=== PATIENT | female | born 1990 | race African-American/Black ===

== ENCOUNTER → 2017-09-12 | Outpatient (CLI) | payer OTHER | END | disposition home or self-care (01) | LOC: US 11:16 | DX: N93.9 Abnormal uterine and vaginal bleeding, unspecified (principal); N83.02 Follicular cyst of left ovary; N83.01 Follicular cyst of right ovary | CPT/HCPCS: 76830; 76856 ==

== ENCOUNTER 2017-11-06 20:46 | Emergency (ER) | payer OTHER | END 2017-11-06 21:22 | disposition home or self-care (01) | LOC: ER 20:46 | DX: R21 Rash and other nonspecific skin eruption (principal); Z98.890 Other specified postprocedural states | CPT/HCPCS: 99283 ==

== ENCOUNTER 2019-03-30 15:07 | Emergency (ER) | payer OTHER ==
[~2019-03-30] VITALS: Ht 167.6 cm; Wt 97.5 kg
[~2019-03-30 15:07] MED LIST: AMOX1TAB61 PO; CLOT15CR5 TP; LEXAPRO20 MG PO; METF500T16 PO; PSEU120T58 PO; [UNRECOGNIZED DRUG - CODE] MC
[2019-03-30 17:14] VITALS: BP 119/86
--- NOTE | 2019-03-30 17:38 | PHYS DOC ---
Past Medical History Past Medical History: No Pertinent History (MURTAZA WOOTEN APRN) Past Surgical History: No Surgical History (MURTAZA WOOTEN APRN) Alcohol Use: None Drug Use: None (MURTAZA WOOTEN APRN) Attending Signature I have participated in the care of this patient and I have reviewed and agree with all pertinent clinical information above including history, exam, and recommendations. (SULY OLIVEIRA MD) Adult General Chief Complaint Chief Complaint: VAGINAL BLEEDING HPI HPI Patient is a 28 year old female who presents with last menstrual period is January 15, 2019. Patient states on Saturday and having vaginal bleeding and to change her pad every hour. Patient states she has low mid abdominal pain is cramping and low back is aching she rates a 7 out of 10. Patient states she does have slight burning with urination. Patient has not established OB care. (MURTAZA WOOTEN APRN) Review of Systems Review of Systems GI: abdominal pain, denies nausea, vomiting, bloody stools or diarrhea [] : Vaginal bleeding. Denies dysuria or hematuria [] All other systems were reviewed and found to be within normal limits, except as documented in this note. (MURTAZA WOOTEN APRN) Current Medications Current Medications Current Medications Medications (Trade) Dose Ordered Sig/Gwen Start Time Stop Time Status Last Admin Dose Admin Azithromycin (Zithromax) 1,000 mg 1X ONCE 03/30/19 17:45 03/30/19 17:46 DC 03/30/19 19:00 1,000 MG Ceftriaxone Sodium (Rocephin Im) 250 mg 1X ONCE 03/30/19 17:45 03/30/19 17:46 DC 03/30/19 18:58 250 MG Ondansetron HCl (Zofran Odt) 4 mg 1X ONCE 03/30/19 17:45 03/30/19 17:46 DC 03/30/19 19:01 4 MG (SULY OLIVEIRA MD) Allergies Allergies Allergies Coded Allergies Type Severity Reaction Last Updated Verified codeine Allergy Intermediate itching 09/27/14 Yes (SULY OLIVEIRA MD) Physical Exam Physical Exam Constitutional: Well developed, well nourished, no acute distress, non-toxic appearance. [] Abdomen: Bowel sounds normal, soft, no tenderness, no masses, no pulsatile masses. [] Skin: Warm, dry, no erythema, no rash. [] Back: No tenderness, no CVA tenderness. [] Neurologic: Alert and oriented X 3, normal motor function, normal sensory function, no focal deficits noted. [] Psychologic: Affect normal, judgement normal, mood normal. [] (MURTAZA WOOTEN APRN) Current Patient Data Vital Signs Vital Signs Date Time Temp Pulse Resp B/P (MAP) Pulse Ox O2 Delivery O2 Flow Rate FiO2 03/30/19 17:14 74 119/86 (97) 99 Room Air 03/30/19 16:46 98.3 16 98.3 (SULY OLIVEIRA MD) Lab Values Laboratory Tests Test 03/30/19 17:28 03/30/19 17:33 03/30/19 18:50 03/30/19 18:56 White Blood Count 9.9 x10^3/uL (4.0-11.0) Red Blood Count 4.72 x10^6/uL (3.50-5.40) Hemoglobin 12.3 g/dL (12.0-15.5) Hematocrit 38.0 % (36.0-47.0) Mean Corpuscular Volume 81 fL (79-100) Mean Corpuscular Hemoglobin 26 pg (25-35) Mean Corpuscular Hemoglobin Concent 33 g/dL (31-37) Red Cell Distribution Width 16.1 % (11.5-14.5) H Platelet Count 316 x10^3/uL (140-400) Neutrophils (%) (Auto) 72 % (31-73) Lymphocytes (%) (Auto) 21 % (24-48) L Monocytes (%) (Auto) 6 % (0-9) Eosinophils (%) (Auto) 2 % (0-3) Basophils (%) (Auto) 1 % (0-3) Neutrophils # (Auto) 7.1 x10^3/uL (1.8-7.7) Lymphocytes # (Auto) 2.0 x10^3/uL (1.0-4.8) Monocytes # (Auto) 0.6 x10^3/uL (0.0-1.1) Eosinophils # (Auto) 0.1 x10^3/uL (0.0-0.7) Basophils # (Auto) 0.1 x10^3/uL (0.0-0.2) Maternal Serum HCG Beta Subunit < 1 mIU/mL (0-5) Sodium Level 141 mmol/L (136-145) Potassium Level 3.4 mmol/L (3.5-5.1) L Chloride Level 104 mmol/L (98-107) Carbon Dioxide Level 30 mmol/L (21-32) Anion Gap 7 (6-14) Blood Urea Nitrogen 8 mg/dL (7-20) Creatinine 0.8 mg/dL (0.6-1.0) Estimated GFR (Cockcroft-Gault) 101.9 BUN/Creatinine Ratio 10 (6-20) Glucose Level 88 mg/dL (70-99) Calcium Level 9.3 mg/dL (8.5-10.1) Total Bilirubin 0.3 mg/dL (0.2-1.0) Aspartate Amino Transferase (AST) 12 U/L (15-37) L Alanine Aminotransferase (ALT) 15 U/L (14-59) Alkaline Phosphatase 64 U/L (46-116) Total Protein 8.4 g/dL (6.4-8.2) H Albumin 4.1 g/dL (3.4-5.0) Albumin/Globulin Ratio 1.0 (1.0-1.7) Chlamydia DNA Probe Negative (Negative) Neisseria gonorrhoeae DNA Probe Negative (Negative) Urine Collection Type Unknown Urine Color Yellow Urine Clarity Clear Urine pH 5.5 Urine Specific [place] >=1.030 Urine Protein Negative mg/dL (NEG-TRACE) Urine Glucose (UA) Negative mg/dL (NEG) Urine Ketones (Stick) Negative mg/dL (NEG) Urine Blood Trace (NEG) Urine Nitrite Negative (NEG) Urine Bilirubin Negative (NEG) Urine Urobilinogen Dipstick 0.2 mg/dL (0.2 mg/dL) Urine Leukocyte Esterase Negative (NEG) Urine RBC 1-2 /HPF (0-2) Urine WBC Occ /HPF (0-4) Urine Squamous Epithelial Cells Mod /LPF Urine Bacteria 0 /HPF (0-FEW) Urine Mucus Marked /LPF POC Urine HCG, Qualitative Hcg negative (Negative) Laboratory Tests 03/30/19 17:28 Laboratory Tests 03/30/19 17:28 Microbiology 03/30/19 Wet Prep - Final, Complete (SULY OLIVEIRA MD) Lab Values Laboratory Tests Test 03/30/19 17:28 White Blood Count 9.9 x10^3/uL (4.0-11.0) Red Blood Count 4.72 x10^6/uL (3.50-5.40) Hemoglobin 12.3 g/dL (12.0-15.5) Hematocrit 38.0 % (36.0-47.0) Mean Corpuscular Volume 81 fL (79-100) Mean Corpuscular Hemoglobin 26 pg (25-35) Mean Corpuscular Hemoglobin Concent 33 g/dL (31-37) Red Cell Distribution Width 16.1 % (11.5-14.5) H Platelet Count 316 x10^3/uL (140-400) Neutrophils (%) (Auto) 72 % (31-73) Lymphocytes (%) (Auto) 21 % (24-48) L Monocytes (%) (Auto) 6 % (0-9) Eosinophils (%) (Auto) 2 % (0-3) Basophils (%) (Auto) 1 % (0-3) Neutrophils # (Auto) 7.1 x10^3/uL (1.8-7.7) Lymphocytes # (Auto) 2.0 x10^3/uL (1.0-4.8) Monocytes # (Auto) 0.6 x10^3/uL (0.0-1.1) Eosinophils # (Auto) 0.1 x10^3/uL (0.0-0.7) Basophils # (Auto) 0.1 x10^3/uL (0.0-0.2) Maternal Serum HCG Beta Subunit < 1 mIU/mL (0-5) Sodium Level 141 mmol/L (136-145) Potassium Level 3.4 mmol/L (3.5-5.1) L Chloride Level 104 mmol/L (98-107) Carbon Dioxide Level 30 mmol/L (21-32) Anion Gap 7 (6-14) Blood Urea Nitrogen 8 mg/dL (7-20) Creatinine 0.8 mg/dL (0.6-1.0) Estimated GFR (Cockcroft-Gault) 101.9 BUN/Creatinine Ratio 10 (6-20) Glucose Level 88 mg/dL (70-99) Calcium Level 9.3 mg/dL (8.5-10.1) Total Bilirubin 0.3 mg/dL (0.2-1.0) Aspartate Amino Transferase (AST) 12 U/L (15-37) L Alanine Aminotransferase (ALT) 15 U/L (14-59) Alkaline Phosphatase 64 U/L (46-116) Total Protein 8.4 g/dL (6.4-8.2) H Albumin 4.1 g/dL (3.4-5.0) Albumin/Globulin Ratio 1.0 (1.0-1.7) Laboratory Tests 03/30/19 17:28 Laboratory Tests 03/30/19 17:28 Microbiology 03/30/19 Wet Prep - Final, Complete (MURTAZA WOOTEN APRN) EKG EKG [] (MURTAZA WOOTEN APRN) Radiology/Procedures Radiology/Procedures [] (MURTAZA WOOTEN APRN) Impressions: [facility] [address] [place], [place] [id number] IMAGING REPORT Signed PATIENT: TINO GRIFFIN ACCOUNT: [id number] : 1990 LOCATION: ER AGE: 28 SEX: F EXAM STATUS: REG ER ORD. PHYSICIAN: MURTAZA WOOTNE APRN REASON: vaginal bleeding PROCEDURE: OB <14 WKS W/TV OB ultrasound support weeks and transvaginal OB ultrasound HISTORY: Vaginal bleeding Sonographic examination of the was performed by transabdominal and endovaginal technique. Multiple static images were obtained. OB ultrasound less than 14 weeks transabdominal: There is poor visualization due to overlying bowel gas. Transvaginal OB ultrasound: The uterus appears normal. The endometrium is homogeneous measures 4 mm in thickness. The ovaries appear normal with normal blood flow. The right ovary measures 2.9 x 1.5 1.8 cm the left ovary measures 2.9 x 2.5 x 2.0 cm. There is no free fluid. IMPRESSION: Negative examination. No intrauterine identified. Miscarriage is possible. Recommend correlation with serial quantitative beta-hCG. If the continues a short-term follow-up ultrasound is recommended. Electronically signed by: Hubert Pinto III, MD (03/30/2019 6:02 PM) [facility] DICTATED and SIGNED BY: HUBERT PINTO III, MD DATE: 03/30/191801 (MURTAZA WOOTEN APRN) Course & Med Decision Making Course & Med Decision Making Abdomen soft and non tender. Skin pink warm and dry. Vital sign wnl. Alert and oriented. Speaks in full clear sentences. Ambulatory with a stable gait. Patient is treated prophylactically for STD's. Cultures sent. Wet prep shows Bacterial Vaginosis. Patients US shows no and the Beta Serum shows < 1. Pelvic Exam: Instructor Pilot present Abdomen: Nontender External Genitalia: Normal Skin Speculum: Normal vaginal mucosa, Bloody cervical discharge Bimanual: No adnexal masses or tenderness, No CMT Cervical os: Closed (MURTAZA WOOTEN APRN) Dragon Disclaimer Dragon Disclaimer This electronic medical record was generated, in whole or in part, using a voice recognition dictation system. (MURTAZA WOOTEN APRN) Departure Departure Impression: Primary Impression: Bacterial vaginosis Disposition: 01 HOME, SELF-CARE Condition: STABLE Referrals: NO PCP (PCP) KAITLIN MULTANI Jr, MD Patient Instructions: Bacterial Vaginosis Additional Instructions: Follow up with primary care physician. Take medication with meals. Scripts Metronidazole (METRONIDAZOLE) 500 Mg Tablet 1 TAB PO BID for 7 Days, #14 TAB 0 Refills Prov: MURTAZA WOOTEN APRN 03/30/19 MURTAZA WOOTEN APRN Mar 30, 2019 17:38 SULY OLIVEIRA MD Apr 01, 2019 18:22
[2019-03-30 17:40] LABS: BASO # 0.1 x10^3/uL (0.0-0.2); BASO % 1 % (0-3); EOS # 0.1 x10^3/uL (0.0-0.7); EOS % 2 % (0-3); HEMOGLOBIN 12.3 g/dL (12.0-15.5); LYMPH % 21 % (24-48); MEAN CORPUSCULAR HEMOGLOBIN 26 pg (25-35); MEAN CORPUSCULAR HGB CONC 33 g/dL (31-37); MEAN CORPUSCULAR VOLUME 81 fL (79-100); MONO # 0.6 x10^3/uL (0.0-1.1); MONO % 6 % (0-9); NEUT # 7.1 x10^3/uL (1.8-7.7); NEUT % 72 % (31-73); PLATELET COUNT 316 x10^3/uL (140-400); RED BLOOD COUNT 4.72 x10^6/uL (3.50-5.40); RED CELL DISTRIBUTION WIDTH 16.1 % (11.5-14.5); WHITE BLOOD COUNT 9.9 x10^3/uL (4.0-11.0)
[2019-03-30] MEDS ORDERED: ONDANSETRON ODT 4 MG TAB.RAPDIS. PO ONE (17:45)
[2019-03-30] MEDS ORDERED: AZITHROMYCIN 250 MG TABLET. PO ONE (17:45)
[2019-03-30] MEDS ORDERED: cefTRIAXone IM 250 MG VIAL IM ONE (17:45)
[2019-03-30 17:49] LABS: CALCIUM 9.3 mg/dL (8.5-10.1); CREATININE 0.8 mg/dL (0.6-1.0); GFR 101.9; POTASSIUM 3.4 mmol/L (3.5-5.1)
[2019-03-30 17:56] LABS: ALBUMIN 4.1 g/dL (3.4-5.0); TOTAL BILIRUBIN 0.3 mg/dL (0.2-1.0); TOTAL PROTEIN 8.4 g/dL (6.4-8.2)
--- NOTE | 2019-03-30 18:05 | RAD ---
OB ultrasound support weeks and transvaginal OB ultrasound HISTORY: Vaginal bleeding Sonographic examination of the was performed by transabdominal and endovaginal technique. Multiple static images were obtained. OB ultrasound less than 14 weeks transabdominal: There is poor visualization due to overlying bowel gas. Transvaginal OB ultrasound: The uterus appears normal. The endometrium is homogeneous measures 4 mm in thickness. The ovaries appear normal with normal blood flow. The right ovary measures 2.9 x 1.5 1.8 cm the left ovary measures 2.9 x 2.5 x 2.0 cm. There is no free fluid. IMPRESSION: Negative examination. No intrauterine identified. Miscarriage is possible. Recommend correlation with serial quantitative beta-hCG. If the continues a short-term follow-up ultrasound is recommended. Electronically signed by: Edson Camejo III, MD (03/30/2019 6:02 PM) [facility]
[2019-03-30] MEDS ORDERED: METR-34 PO (18:12)
[2019-03-30 19:09] LABS: BILIRUBIN,URINE NEGATIVE (NEG); CLARITY,URINE CLEAR; COLOR,URINE YELLOW; NITRITE,URINE NEGATIVE (NEG); PH,URINE 5.5; PROTEIN,URINE NEGATIVE (NEG-TRACE); UROBILINOGEN,URINE 0.2 mg/dL (0.2 mg/dL)
[2019-03-30 19:18] LABS: BACTERIA,URINE 0 /HPF (0-FEW); SQUAMOUS EPITHELIAL CELL,UR MOD /LPF; WBC,URINE OCC /HPF (0-4)
[2019-03-31 18:13] LABS: GC PROBE Negative (Negative)
== END 2019-03-30 19:25 | disposition home or self-care (01) ==
LOC: ER 15:07
DX: N76.0 Acute vaginitis (principal); B96.89 Other specified bacterial agents as the cause of diseases classified elsewhere; Z88.5 Allergy status to narcotic agent
CPT/HCPCS: 36415; 76801; 76817; 80053; 81001; 81025; 84702; 85025; 86850; 86900; 86901; 87491; 87591; 96372; 99285; J0696; Q0111; Q0144; Q0162